=== PATIENT | male | born 1975 | race Caucasian/White ===

== ENCOUNTER 2021-05-31 22:10 | Emergency (ER) | payer BC ==
[2021-05-31] MEDS ORDERED: Ketorolac 30 MG/ML SDV IM STA (23:35)
[2021-05-31] MEDS ORDERED: Lidocaine 2% Viscous Solution 15 ML UD PO ONE (23:35)
[2021-06-01] MEDS ORDERED: Amoxicillin/Clavulanate K 875-125 MG Tab PO ONE (00:10)
[2021-06-01] MEDS ORDERED: Acetaminophen/HYDROcodone 325-5 MG Tab PO ONE (00:15)
== END 2021-06-01 00:43 | disposition home or self-care (01) ==
LOC: MW.ED 22:10
DX: K08.89 Other specified disorders of teeth and supporting structures (principal); J01.00 Acute maxillary sinusitis, unspecified; J01.10 Acute frontal sinusitis, unspecified
CPT/HCPCS: 96372; 99283; A9270; J1885